=== PATIENT | female | born 1975 | race Caucasian/White ===

== ENCOUNTER → 2016-07-16 | Outpatient (CLI) | payer MEDICAID | LOC: OD 10:38 | PROVIDERS: ATTEND Physician Assistant | DX: M25.561 Pain in right knee (principal); M25.461 Effusion, right knee; M25.572 Pain in left ankle and joints of left foot ==

== ENCOUNTER → 2016-08-14 | Outpatient (CLI) | payer MEDICAID ==
[2016-08-14 12:06] LABS: ABSOLUTE EOSINOPHILS # (AUTO) 0.2 10^3/uL (0.0-0.6); ABSOLUTE LYMPHOCYTES (AUTO) 2.2 10^3/uL (0.5-4.7); ABSOLUTE MONOCYTES (AUTO) 0.5 10^3/uL (0.1-1.4); BASOPHILS % (AUTO) 0.4 % (0-2); EOSINOPHILS % (AUTO) 2.1 % (0-6); HEMATOCRIT 37.7 % (36.0-47.0); HEMOGLOBIN 12.6 g/dL (12.0-15.5); HGB HCT DIFFERENCE 0.1; LYMPHOCYTES % (AUTO) 24.1 % (13-45); MEAN CORPUSCULAR HEMOGLOBIN 28.7 pg (27.0-33.4); MEAN CORPUSCULAR HGB CONC 33.4 g/dL (32.0-36.0); MEAN CORPUSCULAR VOLUME 86 fl (80-97); MONOCYTES % (AUTO) 5.8 % (3-13); RED BLOOD COUNT 4.38 10^6/uL (3.72-5.28); RED CELL DISTRIBUTION WIDTH 13.4 % (11.5-14.0); SEGMENTED NEUTROPHILS % (AUTO) 67.6 % (42-78); WHITE BLOOD COUNT 8.9 10^3/uL (4.0-10.5)
[2016-08-14 12:28] LABS: ALANINE AMINOTRANSFERASE 31 U/L (9-52); ALBUMIN 4.2 g/dL (3.5-5.0); ALKALINE PHOSPHATASE 118 U/L (38-126); ANION GAP 9 (5-19); ASPARTATE AMINO TRANSFERASE 24 U/L (14-36); BILIRUBIN,DIRECT 0.4 mg/dL (0.0-0.4); BILIRUBIN,TOTAL 0.6 mg/dL (0.2-1.3); BLOOD UREA NITROGEN 18 mg/dL (7-20); CALCIUM 10.1 mg/dL (8.4-10.2); CARBON DIOXIDE 31 mmol/L (22-30); CHLORIDE 103 mmol/L (98-107); CREATININE RESULT 0.69 mg/dL (0.52-1.25); GLUCOSE 89 mg/dL (75-110); POTASSIUM 4.3 mmol/L (3.6-5.0); SODIUM 143.2 mmol/L (137-145); TOTAL PROTEIN 7.6 g/dL (6.3-8.2)
[2016-08-14 12:48] LABS: ERYTHROCYTE SEDIMENTATION RATE 34 mm/hr (0-20)
== END ==
LOC: OD 11:13
PROVIDERS: ATTEND Physician Assistant
DX: M13.0 Polyarthritis, unspecified (principal); R53.83 Other fatigue
CPT/HCPCS: 36415; 80053; 84443; 85025; 85652; 86038; 86430

== ENCOUNTER → 2017-05-01 | Outpatient (CLI) | payer MEDICAID ==
--- NOTE | 2017-05-01 13:45 | RADIOLOGY REPORT (SQ) ---
EXAM DESCRIPTION: VENOUS UNILATERAL LOWER COMPLETED DATE/TIME: 05/01/2017 1:36 pm REASON FOR STUDY: LLE PAIN M25.572 PAIN IN LEFT ANKLE AND JOINTS OF LEFT FOOT COMPARISON: None. TECHNIQUE: Dynamic and static mcneil scale and color images acquired of the left leg venous system. Se lected spectral images acquired with additional compression and augmentation maneuvers. The contralat eral common femoral vein and saphenofemoral junction were also imaged. Images stored on PACS. LIMITATIONS: None. FINDINGS: COMMON FEMORAL: Normal phasicity, compression and augmentation. No visualized echogenic ma terial on mcneil scale. No defects on color images. FEMORAL: Normal compression and augmentation. No visualized echogenic material on mcneil scale. No defe cts on color images. POPLITEAL: Normal compression, augmentation. No visualized echogenic material on mcneil scale. No defec ts on color images. CALF VESSELS: Normal compression, augmentation. No visualized echogenic material on mcneil scale. No de fects on color images. GSV and SSV: Normal compression, augmentation. No visualized echogenic material on mcneil scale. No def ects on color images. ANY DEEP VENOUS INSUFFICIENCY: Not evaluated. ANY EVIDENCE OF POPLITEAL CYST: No. OTHER: No other significant finding. CONTRALATERAL COMMON FEMORAL VEIN AND SAPHENOFEMORAL JUNCTION: Normal phasicity, compression and augmentation. No visualized echogenic material on mcneil scale. No de fects on color images. IMPRESSION: NO EVIDENCE DVT OR SVT IN THE LEFT LEG. TECHNICAL DOCUMENTATION: JOB ID: [id number] [employer]- All Rights Reserved
--- NOTE | 2017-05-01 15:51 | RADIOLOGY REPORT (SQ) ---
EXAM DESCRIPTION: L SPINE WHOLE COMPLETED DATE/TIME: 05/01/2017 2:47 pm REASON FOR STUDY: LOW BACK PAIN (M54.5) M25.572 PAIN IN LEFT ANKLE AND JOINTS OF LEFT FOOT COMPARISON: 06/13/2011. NUMBER OF VIEWS: Five views including obliques. TECHNIQUE: AP, lateral, oblique, and sacral radiographic images acquired of the lumbar spine. LIMITATIONS: None. FINDINGS: MINERALIZATION: Normal. SEGMENTATION: Normal. No transitional anatomy. ALIGNMENT: Normal. VERTEBRAE: Maintained height. No fracture or worrisome bone lesion. DISCS: Preserved height. No significant osteophytes or end plate irregularity. POSTERIOR ELEMENTS: Pedicles and facets are intact. No pars defect or posterior arch defects. HARDWARE: None in the spine. PARASPINAL SOFT TISSUES: Normal. PELVIS: Intact as visualized. No fractures or worrisome bone lesions. SI joints intact. OTHER: No other significant finding. IMPRESSION: NORMAL 5 VIEW LUMBAR SPINE. TECHNICAL DOCUMENTATION: JOB ID: [id number] [employer]- All Rights Reserved
--- NOTE | 2017-05-01 15:53 | RADIOLOGY REPORT (SQ) ---
EXAM DESCRIPTION: FOOT LEFT COMPLETE COMPLETED DATE/TIME: 05/01/2017 2:47 pm REASON FOR STUDY: LEFT FOOT PAIN (M79.247) M25.572 PAIN IN LEFT ANKLE AND JOINTS OF LEFT FOOT COMPARISON: 12/06/2009. NUMBER OF VIEWS: Three views. TECHNIQUE: AP, lateral and oblique without weight bearing radiographic images acquired of the left f oot. LIMITATIONS: None. FINDINGS: MINERALIZATION: Normal. BONES: No acute fracture or dislocation. No worrisome bone lesions. Large plantar calcaneal spur. JOINTS: No erosions. No yonathan-articular osteopenia. No chondrocalcinosis. SOFT TISSUES: No swelling. No calcifications. OTHER: No other significant finding. IMPRESSION: LARGE HEEL SPUR. NO ACUTE FINDINGS. TECHNICAL DOCUMENTATION: JOB ID: [id number]- All Rights Reserved
== END ==
LOC: SP 13:04
PROVIDERS: ATTEND Physician Assistant
DX: M25.572 Pain in left ankle and joints of left foot (principal); M77.32 Calcaneal spur, left foot; M54.5 Low back pain
CPT/HCPCS: 72110; 93971

== ENCOUNTER → 2017-07-08 | Outpatient (CLI) | payer MEDICAID ==
--- NOTE | 2017-07-08 13:09 | RADIOLOGY REPORT (SQ) ---
EXAM DESCRIPTION: U/S ABDOMEN COMPLETE W/O DOP COMPLETED DATE/TIME: 07/08/2017 11:33 am REASON FOR STUDY: UPPER ABD PAIN (R10.10) R10.10 UPPER ABDOMINAL PAIN, UNSPECIFIED COMPARISON: None. TECHNIQUE: Dynamic and static grayscale images acquired of the abdomen and recorded on PACS. Additio sabina selected color Doppler and spectral images recorded. LIMITATIONS: None. FINDINGS: PANCREAS: Head and body of the pancreas are normal. The tail was obscured by gas. LIVER: 18.9 cm. Normal echotexture. LIVER VASCULATURE: Normal directional flow of the main portal vein and hepatic veins. GALLBLADDER: No stones. Normal wall thickness. No pericholecystic fluid. ULTRASOUND-DETECTED GUTIERREZ'S SIGN: Negative. INTRAHEPATIC DUCTS AND COMMON DUCT: CBD and intrahepatic ducts normal caliber. No filling defects. INFERIOR VENA CAVA: Normal flow. AORTA: No aneurysm. RIGHT KIDNEY: Normal size, 10.5 cm. Normal echogenicity. No solid or suspicious masses. No hyd ronephrosis. No calcifications. LEFT KIDNEY: Normal size, 11 cm. Normal echogenicity. No solid or suspicious masses. No hydron ephrosis. No calcifications. SPLEEN: Normal size, 10.1 cm. No mass. PERITONEAL AND PLEURAL SPACES: No ascites or effusions. OTHER: No other significant finding. IMPRESSION: Hepatomegaly. TECHNICAL DOCUMENTATION: JOB ID: [id number]- All Rights Reserved Reading location - IP/workstation name: [email or web address]
== END ==
LOC: RAD 10:04
PROVIDERS: ATTEND Physician Assistant
DX: R10.10 Upper abdominal pain, unspecified (principal); R16.0 Hepatomegaly, not elsewhere classified
CPT/HCPCS: 76700

== ENCOUNTER 2017-08-15 09:02 | Day surgery (SDC) | payer MEDICAID ==
[2017-08-15] MEDS ORDERED: LIDOCAINE 2% INJ-PF (20 MG/ML) 10 ML AMPUL ONE (10:06)
[2017-08-15] MEDS ORDERED: FENTANYL CITRATE INJ/PF 100 MCG/2 ML AMPUL ONE (10:06)
[2017-08-15] MEDS ORDERED: PROPOFOL INJ 200 MG/20 ML VIAL IV ONE ×2 (10:07→11:17)
[2017-08-15] MEDS ORDERED: ONDANSETRON HCL INJ/PF 4 MG/2 ML SDV ONE (10:07)
[2017-08-15] MEDS ORDERED: MIDAZOLAM 2 MG/2 ML INJ ONE (10:07)
[2017-08-15] MEDS ORDERED: DEXAMETHASONE SOD PHOSPHATE INJ 4 MG/1 ML VIAL ONE (10:07)
[2017-08-15] MEDS ORDERED: DIPHENHYDRAMINE HCL 50 MG/ML VIAL IV PRN (10:13)
[2017-08-15] MEDS ORDERED: FENTANYL CITRATE INJ/PF 100 MCG/2 ML AMPUL IV PRN ×3 (10:13)
[2017-08-15] MEDS ORDERED: ONDANSETRON HCL INJ/PF 4 MG/2 ML SDV IV PRN (10:13)
[2017-08-15] MEDS ORDERED: PROMETHAZINE HCL INJ 25 MG/1 ML VIAL IV PRN ×2 (10:13)
[2017-08-15] MEDS ORDERED: MEPERIDINE HCL/PF INJ 25 MG/1 ML DISP.SYRIN IV PRN (10:13)
--- NOTE | 2017-08-15 11:16 | Operative Report ---
Operative Report DATE OF SURGERY: 08/15/17 Operative Report: The risks, benefits and alternatives of the procedure including risks of bleeding, perforation requiring surgery are and informed consent is obtained. The patient is taken back to the operating room and placed in the left, lateral decubital position. Timeout was called. Both all medications administered. A rectal examination is done which did not reveal any masses, tears or fissures. An Olympus videoscope was inserted into the patient's rectum. The scope was then carefully advanced all the way to the cecum. The cecum is identified by the usual anatomical landmarks including the ileocecal valve as well as the appendiceal office. Photodocumentation is obtained. The scope was then sequentially pulled back via the various segments of the colon including the ascending colon, hepatic flexure, transverse colon, splenic flexure, descending colon and finally into the rectosigmoid portions of the colon. Retroflexion maneuvers is performed. The risks benefits and alternatives of the procedure explained to the patient in detail and informed consent is obtained.A GIF Olympus video scope was inserted into the patient's mouth and hypopharynx, the esophagus is identified intubated and insufflated, the scope was then advanced through the esophagus stomach and duodenum, retroflexion maneuver is done ,the esophagus stomach and first and second portions of the duodenum examined PREOPERATIVE DIAGNOSIS: Abdominal pain, change in bowel habits POSTOPERATIVE DIAGNOSIS: Gastritis status post biopsy rule out Helicobacter pylori. Hiatal hernia. Tortuous colon. Right side colon biopsy status post biopsy. Internal hemorrhoids. Suspect IBS OPERATION: Colonoscopy with biopsy. EGD with biopsy SURGEON: JET EASON ANESTHESIA: LMAC TISSUE REMOVED OR ALTERED: As noted above. COMPLICATIONS: None. ESTIMATED BLOOD LOSS: None. INTRAOPERATIVE FINDINGS: As noted above. PROCEDURE: Patient tolerated the procedure well. No immediate postprocedure complications are noted. Patient discharged in good condition. Discharge date 08/15/2017. Discharge diet: Regular. Discharge activity: Regular. 2-3 week follow-up to discuss findings. Patient is instructed call the office or proceed to the emergency room should there be any further problems or questions. We will wait on pathology.
[2017-08-15] MEDS ORDERED: DEXTROSE 5%-1/2 NORMAL SALINE 1,000 ML IV PRN (11:34)
[2017-08-15] MEDS ORDERED: SIMETHICONE 80 MG TAB.CHEW PO PRN (11:35)
[2017-08-15] MEDS ORDERED: ACETAMINOPHEN 325 MG TABLET PO PRN (11:35)
[2017-08-15] MEDS ORDERED: PROMETHAZINE HCL INJ 25 MG/1 ML VIAL INJ PRN (11:36)
[2017-08-15 13:18] VITALS: BP 120/78
== END 2017-08-15 12:35 | disposition home or self-care (01) ==
LOC: OROUT 09:02
PROVIDERS: ATTEND Internal Medicine Gastroenterology
DX: K44.9 Diaphragmatic hernia without obstruction or gangrene (principal); K29.70 Gastritis, unspecified, without bleeding; K64.8 Other hemorrhoids; K31.819 Angiodysplasia of stomach and duodenum without bleeding; Q43.8 Other specified congenital malformations of intestine; M19.90 Unspecified osteoarthritis, unspecified site; E66.9 Obesity, unspecified; M79.7 Fibromyalgia; M32.9 Systemic lupus erythematosus, unspecified; M06.9 Rheumatoid arthritis, unspecified; Z88.8 Allergy status to other drugs, medicaments and biological substances; Z88.5 Allergy status to narcotic agent
CPT/HCPCS: 43239; 45380; 81025; 88342 ×2; 88305 ×2; J2250; J1100; J3010; J2405; J2704; J3490; 813

== ENCOUNTER → 2017-11-17 | Outpatient (CLI) | payer MEDICAID ==
--- NOTE | 2017-11-17 15:52 | RADIOLOGY REPORT (SQ) ---
CORRECTED REPORT EXAM DESCRIPTION: SHOULDER LEFT 2 OR MORE VIEWS COMPLETED DATE/TIME: 11/17/2017 3:41 pm REASON FOR STUDY: PAIN IN LEFT SHOULDER M25.512 PAIN IN LEFT SHOULDER COMPARISON: None. NUMBER OF VIEWS: Three views. TECHNIQUE: Internal rotation, external rotation, and Y view images acquired of the left shoulder. LIMITATIONS: None. FINDINGS: MINERALIZATION: Normal. BONES: No acute fracture or dislocation. No worrisome bone lesions. No significant osteophytes. GLENOHUMERAL JOINT: No significant findings. ACROMIOCLAVICULAR JOINT: Mild AC joint arthropathy. SOFT TISSUES: No calcifications. VISUALIZED RIBS, SPINE, AND LUNG: No other significant finding. OTHER: No other significant finding. IMPRESSION: AC joint arthropathy. TECHNICAL DOCUMENTATION: JOB ID: [id number] [email or web address]- All Rights Reserved Reading location - IP/workstation name: [email or web address]
== END ==
LOC: OD 15:25
PROVIDERS: ATTEND Nurse Practitioner Acute Care
DX: M25.512 Pain in left shoulder (principal)

== ENCOUNTER 2018-09-01 09:33 | Day surgery (SDC) | payer MEDICAID ==
[2018-09-01] MEDS ORDERED: MIDAZOLAM 2 MG/2 ML INJ ONE (10:53)
--- NOTE | 2018-09-01 12:32 | Operative Report ---
Operative Report DATE OF SURGERY: 09/01/18 Operative Report: The risks benefits and alternatives of the procedure explained to the patient in detail and informed consent is obtained.A GIF Olympus video scope was inserted into the patient's mouth and hypopharynx, the esophagus is identified intubated and insufflated ,the scope was then advanced through the esophagus stomach and duodenum ,retroflexion maneuver is done, the esophagus stomach and first and second portions of the duodenum examined. PREOPERATIVE DIAGNOSIS: Abdominal pain, bloating and dyspepsia POSTOPERATIVE DIAGNOSIS: Gastritis status post biopsy rule out Helicobacter pylori OPERATION: EGD with biopsy SURGEON: JET EASON ANESTHESIA: LMAC TISSUE REMOVED OR ALTERED: As noted above. COMPLICATIONS: None. ESTIMATED BLOOD LOSS: None. INTRAOPERATIVE FINDINGS: As noted above. PROCEDURE: Patient tolerated the procedure well. No immediate postprocedure complications are noted. Patient discharged in good condition. Discharge date 09/01/2018. Discharge diet: Regular. Discharge activity: Regular. 2 to 3-week follow-up to discuss findings. Patient is instructed to call the office or proceed to the emergency room should there be any further proximal questions. Wait on the pathology.
[2018-09-01 13:29] VITALS: BP 120/63
== END 2018-09-01 13:25 | disposition home or self-care (01) ==
LOC: OROUT 09:33
PROVIDERS: ATTEND Internal Medicine Gastroenterology
DX: K29.50 Unspecified chronic gastritis without bleeding (principal); K92.1 Melena; K76.0 Fatty (change of) liver, not elsewhere classified; M79.7 Fibromyalgia; L93.0 Discoid lupus erythematosus; M06.89 Other specified rheumatoid arthritis, multiple sites; Z79.899 Other long term (current) drug therapy; Z79.51 Long term (current) use of inhaled steroids
CPT/HCPCS: 43239; 88305 ×2; J2250; 731

== ENCOUNTER → 2018-09-04 | Outpatient (CLI) | payer MEDICAID ==
--- NOTE | 2018-09-04 11:43 | RADIOLOGY REPORT (SQ) ---
EXAM DESCRIPTION: L SPINE FLEX/EXT ONLY; LUMBAR SPINE 2 VIEWS COMPLETED DATE/TIME: 09/04/2018 10:57 am REASON FOR STUDY: LOW BACK PAIN M25.561 PAIN IN RIGHT KNEE M54.5 LOW BACK PAIN COMPARISON: 05/01/2017 TECHNIQUE: AP and lateral neutral, flexion and extension radiographs of the spine. NUMBER OF VIEWS: Four views. LIMITATIONS: None. FINDINGS: Normal alignment, maintained throughout flexion and extension. No abnormal motion. Disc heights are preserved. OTHER: 5 mm calcified density overlying left kidney. IMPRESSION: Normal lumbar spine. Known left renal calculus. TECHNICAL DOCUMENTATION: JOB ID: [id number] [employer]- All Rights Reserved Reading location - IP/workstation name: [email or web address]
--- NOTE | 2018-09-04 11:43 | RADIOLOGY REPORT (SQ) ---
EXAM DESCRIPTION: L SPINE FLEX/EXT ONLY; LUMBAR SPINE 2 VIEWS COMPLETED DATE/TIME: 09/04/2018 10:57 am REASON FOR STUDY: LOW BACK PAIN M25.561 PAIN IN RIGHT KNEE M54.5 LOW BACK PAIN COMPARISON: 05/01/2017 TECHNIQUE: AP and lateral neutral, flexion and extension radiographs of the spine. NUMBER OF VIEWS: Four views. LIMITATIONS: None. FINDINGS: Normal alignment, maintained throughout flexion and extension. No abnormal motion. Disc heights are preserved. OTHER: 5 mm calcified density overlying left kidney. IMPRESSION: Normal lumbar spine. Known left renal calculus. TECHNICAL DOCUMENTATION: JOB ID: [id number] [employer]- All Rights Reserved Reading location - IP/workstation name: [email or web address]
--- NOTE | 2018-09-04 13:57 | RADIOLOGY REPORT (SQ) ---
EXAM DESCRIPTION: KNEE RIGHT 4 VIEWS COMPLETED DATE/TIME: 09/04/2018 10:57 am REASON FOR STUDY: PAIN IN RIGHT KNEE M25.561 PAIN IN RIGHT KNEE M54.5 LOW BACK PAIN COMPARISON: None. NUMBER OF VIEWS: Four views. TECHNIQUE: AP, lateral, and both oblique radiographic images acquired of the right knee. LIMITATIONS: None. FINDINGS: MINERALIZATION: Normal. BONES: No acute fracture or dislocation. No worrisome bone lesions. No significant osteophytes. JOINT: No effusion. No chondrocalcinosis. OTHER: No other significant finding. IMPRESSION: NEGATIVE STUDY OF THE RIGHT KNEE. NO EXPLANATION FOR PAIN. TECHNICAL DOCUMENTATION: JOB ID: [id number] [employer]- All Rights Reserved Reading location - IP/workstation name: [email or web address]
== END ==
LOC: OD 10:21
PROVIDERS: ATTEND Physician Assistant
DX: M25.561 Pain in right knee (principal); M54.5 Low back pain; N20.0 Calculus of kidney
CPT/HCPCS: 72100; 72120

== ENCOUNTER → 2018-09-09 | Outpatient (CLI) | payer MEDICAID ==
--- NOTE | 2018-09-09 10:01 | RADIOLOGY REPORT (SQ) ---
EXAM DESCRIPTION: U/S ABDOMEN COMPLETE W/DOPPLER COMPLETED DATE/TIME: 09/09/2018 9:43 am REASON FOR STUDY: PERIUMBILICAL ABD PAIN (R10.33) R10.33 PERIUMBILICAL PAIN COMPARISON: 07/08/2017 TECHNIQUE: Dynamic and static grayscale images acquired of the abdomen and recorded on PACS. Additio nal selected color Doppler and spectral images recorded. Note: Study does not meet criteria for complete doppler/duplex scan LIMITATIONS: None. FINDINGS: PANCREAS: No masses. Visualized pancreatic duct normal caliber. LIVER: Hepatomegaly. No focal lesion. Increased echogenicity. LIVER VASCULATURE: Normal directional flow of the main portal vein and hepatic veins. GALLBLADDER: No stones. Normal wall thickness. No pericholecystic fluid. ULTRASOUND-DETECTED GUTIERREZ'S SIGN: Negative. INTRAHEPATIC DUCTS AND COMMON DUCT: CBD and intrahepatic ducts normal caliber. No filling defects. INFERIOR VENA CAVA: Normal flow. AORTA: Atherosclerotic aorta measuring up to 2.7 cm proximally. RIGHT KIDNEY: Normal size. Normal echogenicity. No solid or suspicious masses. No hydronephros is. No calcifications. LEFT KIDNEY: Normal size. Normal echogenicity. No solid or suspicious masses. No hydronephrosi s. No calcifications. SPLEEN: Normal size. No solid masses. PERITONEAL AND PLEURAL SPACES: No ascites or effusions. OTHER: Patient reported pain in the left periumbilical area during scan. IMPRESSION: 1. Hepatomegaly and likely hepatic steatosis. 2. No other evidence of acute intra-abdominal process. 3. Atherosclerotic aorta measuring up to 2.7 cm proximally. See follow-up as below. AAA Size: Follow-up Recommendation 2.6-2.9 cm Every 5 years* *Based upon the Society for Vascular Surgery Guidelines: J Vasc Surg. 2009 Oct;50(4 Suppl):S2-49 *For aortas of maximum diameter of 2.6-2.9 cm meeting the criteria for AAA (?1.5 x proximal normal se gment) TECHNICAL DOCUMENTATION: JOB ID: [id number] [employer]- All Rights Reserved Reading location - IP/workstation name: [email or web address]
== END ==
LOC: RAD 08:59
PROVIDERS: ATTEND Internal Medicine Gastroenterology
DX: K76.0 Fatty (change of) liver, not elsewhere classified (principal); R10.33 Periumbilical pain
CPT/HCPCS: 76700; 93976

== ENCOUNTER → 2019-11-16 | Outpatient (CLI) | payer MEDICAID ==
--- NOTE | 2019-11-16 16:24 | RADIOLOGY REPORT (SQ) ---
EXAM DESCRIPTION: KNEE RIGHT 4 VIEWS IMAGES COMPLETED DATE/TIME: 11/16/2019 3:47 pm REASON FOR STUDY: UNSPECIFIED INTERNAL DERANGEMENT OF RIGHT KNEE M23.91 UNSPECIFIED INTERNAL DERANG EMENT OF RIGHT KNEE COMPARISON: 09/04/2018. NUMBER OF VIEWS: Four views. TECHNIQUE: AP, lateral, and both oblique radiographic images acquired of the right knee. LIMITATIONS: None. FINDINGS: MINERALIZATION: Normal. BONES: No acute fracture or dislocation. No worrisome bone lesions. No significant osteophytes. JOINT: No effusion. No chondrocalcinosis. OTHER: No other significant finding. IMPRESSION: NEGATIVE STUDY OF THE RIGHT KNEE. NO EXPLANATION FOR PAIN. TECHNICAL DOCUMENTATION: JOB ID: [id number] 2010 [employer]- All Rights Reserved Reading location - IP/workstation name: [email or web address]
== END ==
LOC: RAD 15:32
PROVIDERS: ATTEND Family Medicine
DX: M23.91 Unspecified internal derangement of right knee (principal)

== ENCOUNTER → 2020-02-01 | Outpatient (CLI) | payer MEDICAID ==
--- NOTE | 2020-02-01 11:59 | RADIOLOGY REPORT (SQ) ---
EXAM DESCRIPTION: CT ABD/PELVIS WITH IV ONLY IMAGES COMPLETED DATE/TIME: 02/01/2020 9:36 am REASON FOR STUDY: R10.12 LEFT UPPER QUADRANT PAIN M25.561 PAIN IN RIGHT KNEE R10.12 LEFT UPPER JANEEN DRANT PAIN COMPARISON: Abdominal ultrasound 09/09/2018 CT abdomen pelvis 01/06/2015 TECHNIQUE: CT scan of the abdomen and pelvis performed using helical scanning technique with dynamic intravenous contrast injection. No oral contrast. Images reviewed with lung, soft tissue, and bone windows. Reconstructed coronal and sagittal MPR images reviewed. Delayed images for evaluation of the urinary system also acquired. All images stored on PACS. All CT scanners at this facility use dose modulation, iterative reconstruction, and/or weight based d osing when appropriate to reduce radiation dose to as low as reasonably achievable (ALARA). [facility]: Dose Right [facility]: CareDose [facility]: Dose Right [facility]: Teradose 4D [facility]: Edutor CONTRAST TYPE AND DOSE: contrast/concentration: Isovue 350.00 mmol/ml; Total Contrast Delivered: 100 .0 ml; Total Saline Delivered: 52.0 ml RENAL FUNCTION: None required. The patient is less than 50 years old. RADIATION DOSE: CT Rad equipment meets quality standard of care and radiation dose reduction techniq ues were employed. CTDIvol: 22.2 - 28.5 mGy. DLP: 2795 mGy-cm.. LIMITATIONS: None. FINDINGS: LOWER CHEST: No significant findings. No nodules or infiltrates. LIVER: Normal size. No masses. No dilated ducts. SPLEEN: Normal size. No focal lesions. PANCREAS: No masses. No significant calcifications. No adjacent inflammation or peripancreatic fluid collections. Pancreatic duct not dilated. GALLBLADDER: No identified stones by CT criteria. No inflammatory changes to suggest cholecystitis. ADRENAL GLANDS: No significant masses or asymmetry. RIGHT KIDNEY AND URETER: No solid masses. 2 mm right midpole intrarenal nonobstructive stone. No r ight ureteral stones No hydronephrosis or hydroureter. LEFT KIDNEY AND URETER: No solid masses. 7 mm left upper pole intrarenal nonobstructive stone. 2 m m left midpole stone. No left ureteral calculi No hydronephrosis or hydroureter. AORTA AND VESSELS: No aneurysm. No dissection. Renal arteries, SMA, celiac without stenosis. RETROPERITONEUM: No retroperitoneal adenopathy, hemorrhage or masses. BOWEL AND PERITONEAL CAVITY: No oral contrast. No bowel obstruction No masses or inflammatory smith es. No free fluid or peritoneal masses. APPENDIX: Surgically absent PELVIS: No mass. No free fluid. Normal bladder. Normal size female pelvic organs ABDOMINAL WALL: No masses. No hernias. Intact umbilical hernia repair BONES: No significant or acute findings. OTHER: No other significant finding. IMPRESSION: Bilateral intrarenal nonobstructive urinary stones. TECHNICAL DOCUMENTATION: JOB ID: [id number] Quality ID # [id number]: Final reports with documentation of one or more dose reduction techniques (e.g., Au tomated exposure control, adjustment of the mA and/or kV according to patient size, use of iterative reconstruction technique) 2010 [employer]- All Rights Reserved Reading location - IP/workstation name: [email or web address]
--- NOTE | 2020-02-01 12:36 | RADIOLOGY REPORT (SQ) ---
EXAM DESCRIPTION: MRI RT LOWER JOINT WITHOUT IMAGES COMPLETED DATE/TIME: 02/01/2020 9:16 am REASON FOR STUDY: M25.561 PAIN IN RIGHT KNEE M25.561 PAIN IN RIGHT KNEE R10.12 LEFT UPPER QUADRANT PAIN COMPARISON: RIGHT KNEE RADIOGRAPHS 09/04/2018 TECHNIQUE: Non arthrogram noncontrast MRI rightknee images acquired and stored on PACS. Multiplanar images include fat sensitive sequences as T1, water sensitive sequences as FST2 or STIR, cartilage s ensitive sequences as FSPD, and gradient echo sequences. LIMITATIONS: None. FINDINGS: JOINT AND BURSAE: Moderate size suprapatellar knee joint effusion. No Anaya cyst BONE CORTEX AND MARROW: No alteration of signal to suggest marrow replacement. No worrisome bone lesi ons. No occult fracture. ACL: Intact. No degeneration or ganglion cyst. PCL: Intact. MCL: Intact. No periligamentous edema or fluid. LCL: Intact. No periligamentous edema or fluid. MEDIAL MENISCUS: Tiny undersurface tear mid body medial indicates this to the undersurface best shown on coronal image 15. No parameniscal cyst LATERAL MENISCUS: Diffuse horizontal tear of the midbody and posterior horn lateral meniscus, without parameniscal cyst. Best shown on coronal images 10-20. MEDIAL COMPARTMENT: Moderate chondromalacia throughout the medial compartment on coronal images 12-16 . No bulky bony spurring. No subcortical cysts or subcortical edema LATERAL COMPARTMENT: Moderate chondromalacia throughout the lateral compartment on coronal images 12- 16. No bulky bony spurring. No subcortical cysts or subcortical edema PATELLA: Minimal midline patellar chondromalacia. No subchondral cysts. Medial and lateral retinacula intact. EXTENSOR MECHANISM: Intact. Quadriceps and patella tendons normal. SOFT TISSUES: Adjacent muscles and subcutaneous tissues normal. Normal flow void in popliteal artery and vein. OTHER: No other significant finding. IMPRESSION: Moderate size suprapatellar joint effusion Medial and lateral meniscal tears. 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
== END ==
LOC: RAD 08:09
PROVIDERS: ATTEND Family Medicine
DX: M25.561 Pain in right knee (principal); R10.12 Left upper quadrant pain; R10.84 Generalized abdominal pain
CPT/HCPCS: 74177

== ENCOUNTER → 2020-02-04 | Outpatient (CLI) | payer MEDICAID ==
--- NOTE | 2020-02-04 09:56 | RADIOLOGY REPORT (SQ) ---
EXAM DESCRIPTION: U/S ABDOMEN LIMITED W/O DOP IMAGES COMPLETED DATE/TIME: 02/04/2020 9:45 am REASON FOR STUDY: RUQ PAIN R10.11 RIGHT UPPER QUADRANT PAIN COMPARISON: Gallbladder ultrasound dated 09/09/2018, CT dated 02/01/2020 TECHNIQUE: Dynamic and static grayscale images acquired of the abdomen and recorded on PACS. Additio nal selected color Doppler and spectral images recorded. LIMITATIONS: None. FINDINGS: PANCREAS: No masses. No peripancreatic edema or fluid collections. LIVER: Echotexture is coarse with increased echogenicity consistent with hepatic steatosis. LIVER VASCULATURE: Normal directional flow of the main portal vein and hepatic veins. GALLBLADDER: No stones. Normal wall thickness. No pericholecystic fluid. ULTRASOUND-DETECTED GUTIERREZ'S SIGN: Negative. INTRAHEPATIC DUCTS AND COMMON DUCT: CBD and intrahepatic ducts normal caliber. No filling defects. AORTA: No aneurysm. RIGHT KIDNEY: Normal size. Normal echogenicity. No solid or suspicious masses. No hydronephros is. Small nonobstructing stone as demonstrated on CT is noted. PERITONEAL AND RIGHT PLEURAL SPACE: No ascites or effusions. OTHER: No other significant finding. IMPRESSION: 1. Hepatic steatosis. 2. Small nonobstructing right renal stone. TECHNICAL DOCUMENTATION: JOB ID: [id number] 2010 [employer]- All Rights Reserved Reading location - IP/workstation name: [email or web address]
== END ==
LOC: RAD 09:18
PROVIDERS: ATTEND Family Medicine
DX: R10.11 Right upper quadrant pain (principal)
CPT/HCPCS: 76705

== ENCOUNTER → 2020-02-22 | Outpatient (CLI) | payer MEDICAID ==
--- NOTE | 2020-02-22 16:57 | RADIOLOGY REPORT (SQ) ---
EXAM DESCRIPTION: NM HIDA SCAN WITH CCK IMAGES COMPLETED DATE/TIME: 02/22/2020 10:10 am REASON FOR STUDY: R10.11 RIGHT UPPER QUADRANT PAIN R10.11 RIGHT UPPER QUADRANT PAIN COMPARISON: None. RADIONUCLIDE AND DOSE: DOSAGE RADIONUCLIDE: 5 millicuries Tc99m Mebrofenin. DOSAGE CCK: 2.3 micrograms. DOSAGE MORPHINE: Not required. The route of agent administration: Intravenous TECHNIQUE: Serial imaging right upper quadrant up to 60 minutes following injection of radionuclide. CCK injected after gallbladder visualized. LIMITATIONS: None. FINDINGS: LIVER: Normal visualization without areas of photopenia. INTRAHEPATIC BILE DUCTS: Normal size and no delay in visualization. COMMON BILE DUCT: Normal without dilatation. GALLBLADDER: Normal visualization. Calculated ejection fraction of 6%. Normal range is greater freida n 35%. PHYSICAL RESPONSE: Patients presenting complaint was reproduced. OTHER: No other significant finding. IMPRESSION: Biliary dyskinesis with the ejection fraction of 6% where 35% or greater is considered n ormal. Patient's symptoms were reproduced with CCK administration. TECHNICAL DOCUMENTATION: JOB ID: [id number] [employer]- All Rights Reserved Reading location - IP/workstation name: [email or web address]
== END ==
LOC: RAD 07:45
PROVIDERS: ATTEND Family Medicine
DX: R10.11 Right upper quadrant pain (principal)
CPT/HCPCS: 78227; J2805; A9537; Q9969

== ENCOUNTER 2020-04-25 09:02 | Day surgery (SDC) | payer MEDICAID ==
[2020-04-21 12:48] LABS: HEMATOCRIT 36.5 % (36.0-47.0); HEMOGLOBIN 12.5 g/dL (12.0-15.5); MEAN CORPUSCULAR HEMOGLOBIN 28.6 pg (27.0-33.4); MEAN CORPUSCULAR HGB CONC 34.4 g/dL (32.0-36.0); MEAN CORPUSCULAR VOLUME 83 fl (80-97); PLATELET COUNT 266 10^3/uL (150-450); RED BLOOD COUNT 4.38 10^6/uL (3.72-5.28); RED CELL DISTRIBUTION WIDTH 13.5 % (11.5-14.0); WHITE BLOOD COUNT 8.6 10^3/uL (4.0-10.5)
[2020-04-21 13:14] LABS: ALBUMIN 4.2 g/dL (3.5-5.0); ALKALINE PHOSPHATASE 106 U/L (38-126); ANION GAP 5 (5-19); ASPARTATE AMINO TRANSFERASE 24 U/L (14-36); BILIRUBIN,DIRECT 0.2 mg/dL (0.0-0.4); BILIRUBIN,TOTAL 0.5 mg/dL (0.2-1.3); BLOOD UREA NITROGEN 12 mg/dL (7-20); CALCIUM 9.6 mg/dL (8.4-10.2); CARBON DIOXIDE 31 mmol/L (22-30); CHLORIDE 103 mmol/L (98-107); GLUCOSE 94 mg/dL (75-110); POTASSIUM 4.1 mmol/L (3.6-5.0); TOTAL PROTEIN 7.3 g/dL (6.3-8.2)
--- NOTE | 2020-04-21 13:24 | RADIOLOGY REPORT (SQ) ---
EXAM DESCRIPTION: CHEST 2 VIEWS IMAGES COMPLETED DATE/TIME: 04/21/2020 1:00 pm REASON FOR STUDY: PREOP TESTING COMPARISON: 02/18/2013 EXAM PARAMETERS: NUMBER OF VIEWS: two views TECHNIQUE: Digital Frontal and Lateral radiographic views of the chest acquired. RADIATION DOSE: NA LIMITATIONS: none FINDINGS: LUNGS AND PLEURA: No opacities, masses or pneumothorax. No pleural effusion. MEDIASTINUM AND HILAR STRUCTURES: No masses or contour abnormalities. HEART AND VASCULAR STRUCTURES: Heart normal size. No evidence for failure. BONES: No acute findings. HARDWARE: None in the chest. OTHER: No other significant finding. IMPRESSION: NO ACUTE RADIOGRAPHIC FINDING IN THE CHEST. TECHNICAL DOCUMENTATION: JOB ID: [id number] 2010 [employer]- All Rights Reserved Reading location - IP/workstation name: [email or web address]
--- NOTE | 2020-04-21 19:34 | EKG REPORT ---
SEVERITY:- NORMAL ECG - SINUS RHYTHM : Confirmed by: Paola Rich MD 21-Apr-2020 19:33:12
[~2020-04-25 09:02] MED LIST: ACETAMINOPHEN 1,000 MG/100 ML RTUPB IV PRN; LACTATED RINGERS 1000 ML IV PRN; LIDOCAINE 0.5% INJ-PF (5 MG/ML) 50 ML SDV SUBCUT PRN; VANCOMYCIN HCL 1,000 MG in DEXTROSE 5%-WATER 250 ML IV PRN
[2020-04-25] MEDS ORDERED: MIDAZOLAM 2 MG/2 ML INJ ONE (09:03)
[2020-04-25] MEDS ORDERED: FENTANYL CITRATE INJ/PF 100 MCG/2 ML AMPUL ONE ×2 (09:03→12:00)
[2020-04-25] MEDS ORDERED: EPHEDRINE SULFATE INJ 50 MG/1 ML AMPULE ONE (09:03)
[2020-04-25] MEDS ORDERED: BUPIVACAINE HCL 0.25 % INJ/PF (2.5 MG/1 ML) 30 ML VIAL ONE (09:03)
[2020-04-25] MEDS ORDERED: HYDROMORPHONE HCL INJ/PF 2 MG/ML AMPULE ONE (09:03)
[2020-04-25] MEDS ORDERED: PROPOFOL INJ 200 MG/20 ML VIAL IV ONE (09:04)
[2020-04-25] MEDS ORDERED: SUGAMMADEX SODIUM 200 MG/2 ML SDV IV ONE (09:04)
[2020-04-25] MEDS ORDERED: ACETAMINOPHEN 1,000 MG/100 ML RTUPB IV ONE (10:27)
[2020-04-25] MEDS ORDERED: DIPHENHYDRAMINE HCL 50 MG/ML VIAL IV PRN (11:08)
[2020-04-25] MEDS ORDERED: PROMETHAZINE HCL INJ 25 MG/1 ML VIAL IV PRN ×2 (11:08)
[2020-04-25] MEDS ORDERED: MEPERIDINE HCL/PF INJ 25 MG/1 ML DISP.SYRIN IV PRN (11:08)
[2020-04-25] MEDS ORDERED: FENTANYL CITRATE INJ/PF 100 MCG/2 ML AMPUL IV PRN ×3 (11:08)
--- NOTE | 2020-04-25 12:04 | Operative Report ---
Nonrecallable Operative Report DATE OF SURGERY: 04/25/20 PREOPERATIVE DIAGNOSIS: Biliary dyskinesia POSTOPERATIVE DIAGNOSIS: Same as above OPERATION: Laparoscopic cholecystectomy SURGEON: MEGAN ESCALERA [employer] SALES MANAGER: KATHERINE RITCHIE ANESTHESIA: GA TISSUE REMOVED OR ALTERED: galbladder COMPLICATIONS: none apparent ESTIMATED BLOOD LOSS: minimal PROCEDURE: Implants: none . Procedure in detail: After informed consent was obtained, the patient was brought into the operating room and laid in the supine position. The area of the abdomen was prepped and draped in a normal sterile fashion. A 5 mm camera was inserted into the abdominal cavity in the right upper quadrant using the Optiview technique. Gas insufflation was attached, and pneumoperitoneum was achieved. Next, an appropriate place for 12 mm trocar insertion was chosen under direct laparoscopic visualization. The patient had a midline ventral hernia mesh, which was avoided completely upon insertion of the 12 mm trocar. The 12 mm trocar was inserted in the right lower quadrant, at about the level of the umbilicus, just lateral to the intra-abdominal mesh. Next, a 5 mm subxiphoid port was placed, as well as a lateral right upper quadrant trocar. This was also done under direct laparoscopic visualization. Next, the gallbladder was identified, retracted, and inspected. Dissection was begun in the triangle of Calot. The cystic duct and cystic artery were fully visualized and skeletonized, seeing the liver through the triangle. Once the critical view of safety was obtained, the cystic duct and cystic artery were clipped and cut with laparoscopic instruments. The gallbladder was then removed from the liver using Bovie electrocautery. The gallbladder was grasped with a large clamp, and pulled out through the 12 mm trocar site. Once this was completed, the camera was reinserted. The hilum was inspected. It was found to be free of any leakage of blood or bile. Next, attention was turned to closure of the 12 mm trocar site. The 12 mm trocar site was closed using 0 Vicryl suture in [id number] fashion with the aid of the Babatunde-Aubree device. After this was completed, the 5 mm trochars were removed, and pneumoperitoneum was relieved. The overlying skin was then closed using 4-0 Vicryl Rapide suture in running subcuticular fashion. Dressings were placed, and the procedure was concluded. All sponge, instrument, and needle counts were correct x2. Condition: Stable. Katherine Ritchie PA-C was scrubbed and present the entirety the procedure. She assisted with all portions of the procedure including placement of the trochars, manipulation of the gallbladder, removal of the gallbladder, closure of the fascia, and closure of the skin.
--- NOTE | 2020-04-25 12:11 | Discharge Summary ---
Discharge Summary (SDC) - Discharge Final Diagnosis: biliary dyskinesia Date of Surgery: 04/25/20 Discharge Date: 04/25/20 Condition: Stable Treatment or Instructions: Discharge home. Diet as tolerated. Activity: No lifting greater than 10 pounds x 2 weeks. Follow-up with me at [facility] in 7 to 10 days. [place] 10/325 mg p.o. every 6 hours as needed for pain. Okay to shower on . No hot tubs, bathtubs, or swimming pools x2 weeks. Referrals: HEATHER SCOTT DO [Primary Care Provider] - Discharge Diet: As Tolerated Respiratory Treatments at Home: Deep Breathing/Coughing, Incentive Spirometer Discharge Activity: Balance Activity w/Rest, No Lifting Over 10 Pounds, No Lifting/Push/Pulling Home Care Assistance: None Needed Report the Following to Your Physician Immediately: Shortness of Breath, Nausea, Vomiting, Increase in Pain, Fever over 101 Degrees, Unusual Bleeding, Increased Soreness, Drainage-Yellow
[2020-04-25] MEDS ORDERED: OXYCODONE-ACETAMINOPHEN 5-325 MG TABLET PO PRN (12:24)
[2020-04-25] MEDS ORDERED: OXYCODONE-ACETAMINOPHEN 5-325 MG TABLET ONE (12:48)
[2020-04-25] MEDS ORDERED: OXYCODONE-ACETAMINOPHEN 5-325 MG TABLET PO ONE (13:00)
[2020-04-25] MEDS ORDERED: METOCLOPRAMIDE HCL INJ/PF 10 MG/2 ML SDV ONE (15:47)
[2020-04-25] MEDS ORDERED: DIPHENHYDRAMINE HCL 50 MG/ML VIAL ONE (15:47)
[2020-04-25] MEDS ORDERED: SUCCINYLCHOLINE CHLORIDE INJ 200 MG/10 ML VIAL ONE (15:47)
[2020-04-25] MEDS ORDERED: DEXAMETHASONE SOD PHOSPHATE INJ 4 MG/1 ML VIAL ONE (15:47)
[2020-04-25] MEDS ORDERED: ROCURONIUM BROMIDE INJ 50 MG/5 ML VIAL IV ONE (15:47)
[2020-04-25] MEDS ORDERED: ONDANSETRON HCL INJ/PF 4 MG/2 ML SDV ONE (15:47)
[2020-04-25] MEDS ORDERED: METOPROLOL TARTRATE PF/INJ 5 MG/5 ML SDV IV ONE (15:47)
[2020-04-25 16:39] VITALS: BP 140/90
== END 2020-04-25 15:45 | disposition home or self-care (01) ==
LOC: OROUT 09:02
PROVIDERS: ATTEND Surgery
DX: K81.1 Chronic cholecystitis (principal); R05 Cough; Z01.812 Encounter for preprocedural laboratory examination; Z20.822 Contact with and (suspected) exposure to COVID-19; Z01.818 Encounter for other preprocedural examination; M06.9 Rheumatoid arthritis, unspecified; M32.9 Systemic lupus erythematosus, unspecified; K21.9 Gastro-esophageal reflux disease without esophagitis; K29.70 Gastritis, unspecified, without bleeding; M79.7 Fibromyalgia; J45.909 Unspecified asthma, uncomplicated; Z90.49 Acquired absence of other specified parts of digestive tract; Z79.1 Long term (current) use of non-steroidal anti-inflammatories (NSAID); Z79.891 Long term (current) use of opiate analgesic
CPT/HCPCS: 47562; 93005; 36415; 85027; 87635; 81025; 80053; 88304 ×2; 71046; 93010; J2250; J3490 ×4; J1100; J1200; J3010; J2765; J0330; J2405; J7060; J2704; J3370; J0131; C9803; 790; J1170